=== PATIENT | female | born 1965 | race Caucasian/White ===

== ENCOUNTER 2018-10-30 16:57 | Emergency (ER) | payer OTHER ==
[2018-10-30 17:35] VITALS: BP 121/67
--- NOTE | 2018-10-30 17:37 | UC ---
Respiratory Complaint HPI - HPI Summary HPI Summary: 53 year old female with thyroid disease, thyroid medications presents with sinus pressure, post nasal drip x 1 1/2 weeks, last was on plane, during decent ++ pain in L ear, improved with landing, continues to have pain. no fever, chills. + sinus pressure, no decreased hearing. Patient thought was related to cerumen impaction, has used OTC ear wax removal kits. - History of Current Complaint Chief Complaint: UCEar Stated Complaint: EAR COMPLAINT Time Seen by Provider: 10/30/18 17:25 Hx Obtained From: Patient ?: No Onset/Duration: Sudden Onset, Lasting Days - since Timing: Constant Severity Initially: Moderate Severity Currently: Moderate Pain Intensity: 2 Pain Scale Used: 0-10 Numeric Character: Cough: Nonproductive - Allergies/Home Medications Allergies/Adverse Reactions: Allergies Allergy/AdvReac Type Severity Reaction Status Date / Time alendronate sodium AdvReac Pain Verified 10/30/18 17:24 Home Medications: Home Medications Calcium Carbonate/Vitamin D3 [Oyster Shell Calcium 500+] 1 chw PO SEE INSTRUCTIONS 10/30/18 [History Confirmed 10/30/18] Cholecalciferol (Vitamin D3) [Vitamin D3] 2,000 unit PO DAILY 10/30/18 [History Confirmed 10/30/18] Cyanocobalamin (Vitamin B-12) [Vitamin B-12] 1,000 mcg PO DAILY 10/30/18 [ History Confirmed 10/30/18] Denosumab(NF) [Prolia(NF)] 60 mg .SEE ORDER SEE INSTRUCTIONS 10/30/18 [History Confirmed 10/30/18] Levothyroxine Sodium [Synthroid] 112 mcg PO DAILY 10/30/18 [History Confirmed ] PMH/Surg Hx/FS Hx/Imm Hx Previously Healthy: Yes - thyroid disease Endocrine History: Thyroid Disease - Surgical History Surgical History: Yes Surgery Procedure, Year, and Place: Thyroidectomy. Tubal - Social History Alcohol Use: Occasionally Substance Use Type: None Smoking Status (MU): Former Smoker When Did the Patient Quit Smoking/Using Tobacco: 30 yrs ago Review of Systems All Other Systems Reviewed And Are Negative: Yes Constitutional: Negative: Fever, Chills ENT: Positive: Ear Ache, Nasal Discharge, Sinus Congestion, Sinus Pain/ Tenderness. Negative: Dental Pain, Sore Throat Respiratory: Negative: Shortness Of Breath, Cough Is Patient Immunocompromised?: No Physical Exam Triage Information Reviewed: Yes Appearance: Well-Appearing, No Pain Distress, Well-Nourished Vital Signs: Initial Vital Signs Temp 99 F 10/30/18 17:30 Pulse 76 10/30/18 17:30 Resp 12 10/30/18 17:30 BP 121/67 10/30/18 17:30 Pulse Ox 99 10/30/18 17:30 Vital Signs Reviewed: Yes Eyes: Positive: Conjunctiva Clear ENT: Positive: TMs normal, TM red - left unable to visiualize due to partial cerumen impaction, yellow cerumen, no drainage noted.. Negative: Pharynx normal , Tonsillar swelling, Tonsillar exudate, Sinus tenderness - right side, Uvula midline Neck: Negative: Nuchal Rigidity Respiratory: Positive: Chest non-tender, Lungs clear, Normal breath sounds, No respiratory distress, No accessory muscle use. Negative: Crackles, Rhonchi, Stridor, Wheezing Cardiovascular: Positive: RRR Skin Exam: Normal Respiratory Course/Dx - Course Course Of Treatment: AOM, abx given, - Follow up with ENT if no improvement - Antibiotics as directed - Tylenol/ Motrin as needed for pain - Do not use external ear drops any longer as we cannot rule out a ear drum/ tympanic membrane rupture. - Differential Dx/Diagnosis Differential Diagnosis/HQI/PQRI: Influenza, Laryngitis, VRE, Tuberculosis Provider Diagnosis: AOM (acute otitis media) Discharge - Sign-Out/Discharge Documenting (check all that apply): Patient Departure All imaging exams completed and their final reports reviewed: No Studies - Discharge Plan Condition: Good Disposition: HOME Prescriptions: Amoxicillin/Clavulanate TAB* [Augmentin TAB 875*] 875 mg PO BID #14 tab Patient Education Materials: Ear Infection (ED) Referrals: No Primary Care Phys,NOPCP [Primary Care Provider] - Yony Main MD [Medical Doctor] - (FOllow up if no improvement within 2-3 days ) Shay Lopes MD [Medical Doctor] - Additional Instructions: - Follow up with ENT if no improvement - Antibiotics as directed - Tylenol/ Motrin as needed for pain - Do not use external ear drops any longer as we cannot rule out a ear drum/ tympanic membrane rupture. - Billing Disposition and Condition Condition: GOOD Disposition: Home
== END 2018-10-30 18:09 | disposition home or self-care (01) ==
LOC: UCCORT 16:57
DX: H66.92 Otitis media, unspecified, left ear (principal); E07.9 Disorder of thyroid, unspecified; Z87.891 Personal history of nicotine dependence
CPT/HCPCS: 99202; G0463